=== PATIENT | male | born 1990 | race Hispanic/Latino ===

== ENCOUNTER 2020-03-22 14:05 | Emergency (ER) | payer SELFPAY ==
[2020-03-22 14:10] VITALS: BP 144/83
--- NOTE | 2020-03-22 14:11 | Emergency Department Report ---
Chief Complaint: Upper Respiratory Infection Stated Complaint: STUFFY NOSE/CONGESTION Time Seen by Provider: 03/22/20 14:10 - HPI History of Present Illness: 29 y/o male comes in for chronic nasal problems. Has no fever no headaches no chest pain. - Exam Vital Signs: Vital Signs 03/22/20 14:09 Temperature 98.2 F Pulse Rate 79 Respiratory 18 Rate Blood Pressure 144/83 [Right] O2 Sat by Pulse 99 Oximetry Physical Exam: axo times 3 NAD Resp: effort less no accessory muscle use ambulating without diff MSE screening note: Focused history and physical exam performed. Due to findings the following was ordered: 29 y/o male comes in for chronic nasal problems. Has no fever no headaches no chest pain. Recommend otc Zyrtec flonase and follow up with a pcp ED Disposition for MSE Disposition: MED SCREENING EXAM-LEFT Is pt being admited?: No Does the pt Need Aspirin: No Condition: Stable Additional Instructions: Recommend otc Zyrtec flonase and follow up with a pcp Referrals: MARIANA SINGH MD [Staff Physician] - 3-5 Days
== END 2020-03-22 14:37 | disposition left against medical advice (07) ==
LOC: ED 14:05
DX: R09.89 Other specified symptoms and signs involving the circulatory and respiratory systems (principal); Z53.21 Procedure and treatment not carried out due to patient leaving prior to being seen by health care provider
CPT/HCPCS: 99282